=== PATIENT | female | born 1960 | race Caucasian/White ===

== ENCOUNTER → 2016-08-21 | Outpatient (CLI) | payer OTHER ==
[~2016-08-21] MED LIST: CATHETER FLUSH 10 ML SYR IV PRN; IOHEXOL 350 MG/ML 100 ML (OMNIPAQUE 350) VIAL IV ONE; NS 100 ML (IVPB) BAG IV ONE
[2016-08-21 16:18] LABS: MEAN PLATELET VOLUME 9.9 FL (7.4-10.4); RED BLOOD COUNT 4.06 10^6/uL (4.35-5.85); RED CELL DISTRIBUTION WIDTH 12.2 % (10.0-14.5); WHITE BLOOD COUNT 8.2 10^3/uL (4.3-11.0)
[2016-08-21 16:39] LABS: ANION GAP 8 MMOL/L (5-14); BLOOD UREA NITROGEN 11 MG/DL (7-18); BUN/CREATININE RATIO 13; CALCIUM 9.5 MG/DL (8.5-10.1); CARBON DIOXIDE 28 MMOL/L (21-32); CHLORIDE 103 MMOL/L (98-107); CREATININE SERUM 0.88 MG/DL (0.60-1.30); GFR ESTIMATED > 60; GLUCOSE 79 MG/DL (70-105); LIPASE 7 U/L (8-78); POTASSIUM 3.8 MMOL/L (3.6-5.0); SODIUM 139 MMOL/L (135-145); hs C REACTIVE PROTEIN 0.37 MG/DL (0.00-0.50)
[2016-08-21 16:41] LABS: BILIRUBIN,URINE NEGATIVE (NEGATIVE); KETONES,URINE 1+ (NEGATIVE); LEUKOCYTE ESTERASE ,URINE NEGATIVE (NEGATIVE); NITRITE,URINE NEGATIVE (NEGATIVE); PH,URINE 6 (5-9); PROTEIN,URINE NEGATIVE (NEGATIVE); UROBILINOGEN,URINE NORMAL (NORMAL)
[2016-08-21 16:42] LABS: WBC,URINE 0-2 /HPF
--- NOTE | 2016-08-21 17:35 | Diagnostic Imaging Report ---
PROCEDURE: CT lumbar spine without contrast. TECHNIQUE: Multiple contiguous axial images were obtained through the lumbar spine without the use of intravenous contrast. Sagittal and coronal reformations were then performed. INDICATION: Back pain. FINDINGS: The alignment of the lumbar spine is normal. The vertebral body heights are well maintained. There is no spondylolysis or spondylolisthesis. No fractures are identified. There is some lower lumbar hypertrophic degenerative facet disease. There are some prominent osteophytes along the anterior aspect of the lumbar spine at L3 and L4. There does appear to be some annular bulging at L3-L4 and L4-L5 where there is some effacement of the ventral thecal sac. IMPRESSION: Mild diffuse lumbar spondylosis and lower lumbar hypertrophic degenerative facet disease without acute fracture, focal disc extrusion, or high-grade spinal stenosis. Report given to MURTAZA Duvall, at 5:40 p.m. 08/21/2016/juan jose Dictated by: Dictated on workstation # [id number]
--- NOTE | 2016-08-21 17:40 | Diagnostic Imaging Report ---
PROCEDURE: CT abdomen and pelvis with contrast. TECHNIQUE: Multiple contiguous axial images were obtained through the abdomen and pelvis after administration of intravenous contrast. INDICATION: Abdominal pain and back pain. FINDINGS: The heart size is normal. The lung bases are clear. The liver is normal in size without focal lesions. The gallbladder is unremarkable. There is no biliary ductal dilatation. The spleen is normal. The pancreas and adrenal glands are unremarkable. The kidneys are normal in appearance. Specifically, there is no evidence of nephrolithiasis or obstructive uropathy. The aorta is nonaneurysmal. The bowel gas pattern is nonspecific. There is a 3 cm cyst in the right adnexa. There is no free air. There is no ascites. There are no focal inflammatory changes. There are degenerative changes in the spine. IMPRESSION: There is a 3 cm right adnexal cyst. This is presumably of ovarian origin. This could be better evaluated with pelvic ultrasound if clinically warranted. Degenerative changes in the spine. No other acute abnormality in the abdomen or pelvis. Report given to MURTAZA Duvall, at 5:40 p.m. 08/21/2016/juan jose Dictated by: Dictated on workstation # [id number]
== END ==
LOC: RAD 16:03
PROVIDERS: ATTEND Physician Assistant
DX: M47.816 Spondylosis without myelopathy or radiculopathy, lumbar region (principal); N83.201 Unspecified ovarian cyst, right side; R10.10 Upper abdominal pain, unspecified; R10.31 Right lower quadrant pain
CPT/HCPCS: 36415; 72131; 74177; 80048; 81000; 83690; 85027; 85652; 86141

== ENCOUNTER → 2020-02-14 | Outpatient (CLI) | payer BC ==
--- NOTE | 2020-02-14 16:26 | Diagnostic Imaging Report ---
INDICATION: Injury to the left knee and pain. TIME OF EXAM: 03:53 p.m. EXAMINATION: Three views of left knee were obtained. FINDINGS: Alignment is normal. Joint spaces are well maintained. Articular surfaces are smooth. No fracture, dislocation or effusion is detected. IMPRESSION: No acute bony abnormality is detected. Dictated by: Dictated on workstation # [id number]
== END ==
LOC: RAD FS 15:00
PROVIDERS: ATTEND Nurse Practitioner
DX: S89.92XA Unspecified injury of left lower leg, initial encounter (principal)
CPT/HCPCS: 73562